=== PATIENT | male | born 1990 | race Caucasian/White ===

== ENCOUNTER 2017-10-24 06:38 | Day surgery (SDC) | payer BC ==
[~2017-10-24] VITALS: Ht 177.8 cm; Wt 112.1 kg
[2017-10-24] VITALS (12 sets, daily range): BP systolic 99–149; BP diastolic 61–95
[2017-10-24] MEDS ORDERED: diphenhydrAMINE 25mg capsule PO PRN (06:55)
[2017-10-24] MEDS ORDERED: normal saline 1000ml 1,000 ML IV SCH (06:55)
[2017-10-24] MEDS ORDERED: ACET-2119 PO (07:00)
[2017-10-24] MEDS ORDERED: ASPI-611 PO (07:00)
[2017-10-24] MEDS ORDERED: INDLA80C PO (07:00)
[2017-10-24] MEDS ORDERED: fentaNYL/PF 50MCG/1 ML 2ML syringe ONE (07:38)
[2017-10-24] MEDS ORDERED: LIDOcaine 1% w/EPI 1:100,000 30ml vial (MDV) ONE (07:38)
[2017-10-24] MEDS ORDERED: midazolam 2 mg/2 ml injection ONE ×3 (07:38→08:11)
[2017-10-24] MEDS ORDERED: iohexol 350MG/ML 100ml bottle IV ONE (07:39)
[2017-10-24] MEDS ORDERED: iohexol 350 MG/ML 50ML vial IV ONE (07:42)
[2017-10-24 07:48] LABS: PROTHROMBIN TIME 9.9 SECONDS (9.0-12.0)
[2017-10-24 07:51] LABS: ALBUMIN 4.2 G/DL (3.4-5.0); ANION GAP 12 (8-16); BLOOD UREA NITROGEN 13 MG/DL (7-18); BUN/CREATININE RATIO 10.5 (5.4-32.0); CALCIUM 9.1 MG/DL (8.5-10.1); CHLORIDE 105 MMOL/L (99-107); CREATININE 1.24 MG/DL (0.60-1.10); GLUCOSE 92 MG/DL (70-104); MAGNESIUM 2.2 MG/DL (1.5-2.4); SODIUM 142 MMOL/L (135-145); TOTAL CARBON DIOXIDE 25.1 MMOL/L (24-32); eGFR 69 ML/MIN
[2017-10-24 08:16] LABS: BASOPHILS % (AUTO) 0.4 % (0-1); EOSINOPHILS # (AUTO) 0.1 X10'3 (0-0.9); EOSINOPHILS % (AUTO) 1.5 % (0-6); HEMOGLOBIN 17.1 g/dl (14.0-17.9); LYMPHOCYTES # (AUTO) 2.1 X10'3 (1.1-4.8); LYMPHOCYTES % (AUTO) 35.5 % (21-51); MEAN CORPUSCULAR HEMOGLOBIN 31.9 PG (27.0-31.0); MEAN CORPUSCULAR VOLUME 91.1 FL (78-98); MEAN PLATELET VOLUME 7.9 FL (7.4-10.4); MONOCYTES # (AUTO) 0.5 X10'3 (0-0.9); MONOCYTES % (AUTO) 7.6 % (2-12); NEUTROPHILS # (AUTO) 3.3 X10'3 (1.8-7.7); PLATELET COUNT 216 X10'3 (140-440); RED BLOOD COUNT 5.38 X10'6 (4.70-6.10); RED CELL DISTRIBUTION WIDTH 12.6 % (11.5-14.5)
== END 2017-10-24 12:10 | disposition home or self-care (01) ==
LOC: SSTAY O 06:38
PROVIDERS: ATTEND Internal Medicine Cardiovascular Disease
DX: I20.8 Other forms of angina pectoris (principal); Z79.891 Long term (current) use of opiate analgesic; Z79.82 Long term (current) use of aspirin; Z72.89 Other problems related to lifestyle; Z79.899 Other long term (current) drug therapy; Z98.890 Other specified postprocedural states
CPT/HCPCS: 36415; 80048; 83735; 85025; 85610; 93005; 93458; 99152; 99153; A6257; C1760; C1769; C1894; J1644; J2250; J3010; J3490; J7030; Q0163; Q9967; A4620